=== PATIENT | male | born 2000 | race African-American/Black ===

== ENCOUNTER 2022-10-15 18:12 | Inpatient (IN) | payer OTHER ==
[2022-10-15] MEDS ORDERED: NA CHLORIDE 0.9% 1,000 ML ONE ×4 (18:19→21:06)
[2022-10-15] MEDS ORDERED: METHYLPREDNISOLONE 125 MG INJ ONE (18:19)
[2022-10-15] MEDS ORDERED: FAMOTIDINE 20 MG/2 ML VIAL IV ONE (18:20)
[2022-10-15] MEDS ORDERED: ONDANSETRON 4 MG/2 ML VIAL ONE (18:44)
[2022-10-15] MEDS ORDERED: DIPHENHYDRAMINE 50 MG/ML VIAL ONE (19:11)
[2022-10-15] MEDS ORDERED: CALCIUM GLUCONATE 1 GM IVPB 0 GM/0 ML BAG IV ONE (19:52)
[2022-10-15 20:24] LABS: Hematocrit 41.6 % (39.6-49.0); Lymphocytes % 35.9 % (15.3-44.8); MCV 76.1 fL (80-100); MPV 6.9 fL (7.6-11.3); RBC Red Blood Cell Count 5.47 M/uL (4.33-5.43)
[2022-10-15 20:41] LABS: Albumin 4.2 g/dL (3.4-5.0); Bilirubin Total 0.5 mg/dL (0.2-1.0); Potassium 3.2 mmol/L (3.5-5.1); Protein, Total 7.9 g/dL (6.4-8.2)
[2022-10-15] MEDS ORDERED: FUROSEMIDE 40 MG/4 ML VIAL ONE (21:06)
--- NOTE | 2022-10-15 21:25 | ER ---
Nurse's Notes [facility] Name: Aime Gruber Age: 22 yrs Sex: Male : 2000 Arrival Date: 10/15/2022 Time: 18:13 Bed 14 Private MD: Diagnosis: Hypermagnesemia Presentation: 10/15 18:20 Chief complaint: EMS states: allergic reaction to pork, pt c/o nausea and hoarseness , iw ingested a spoonful at 1700 , pt was administered benadryl 25 PO and zofran PO OLIVE GROWER, symptoms improved. Coronavirus screen: At this time, the client does not indicate any symptoms associated with coronavirus-19. Ebola Screen: Patient negative for fever greater than or equal to 101.5 degrees Fahrenheit, and additional compatible Ebola Virus Disease symptoms Patient denies exposure to infectious person. Patient denies travel to an Ebola-affected area in the 21 days before illness onset. No symptoms or risks identified at this time. Onset: The symptoms/episode began/occurred 1 hour(s) ago. Anaphylaxis evaluation, no signs or symptoms of anaphylaxis were noted. Initial Sepsis Screen: Does the patient meet any 2 criteria? No. Patient's initial sepsis screen is negative. Does the patient have a suspected source of infection? No. Patient's initial sepsis screen is negative. Risk Assessment: Do you want to hurt yourself or someone else? Patient reports no desire to harm self or others. Onset of symptoms was October 15, 2022. 18:20 Method Of Arrival: EMS: [facility] iw 18:20 Acuity: NICOLA 3 iw 19:35 Acuity: NICOLA 2 iw Historical: - Allergies: 18:22 No Known Allergies; iw - Home Meds: 18:22 None [Active]; iw - PMHx: 18:22 Asthma; iw - PSHx: 18:22 None; iw Screenin:27 [facility] ED Fall Risk Assessment (Adult) History of falling in the last 3 months, iw including since admission No falls in past 3 months (0 pts). Abuse screen: Denies threats or abuse. Denies injuries from another. Nutritional screening: No deficits noted. Tuberculosis screening: No symptoms or risk factors identified. Assessment: 18:27 General: Appears in no apparent distress. Behavior is calm, cooperative. Pain: Denies iw pain. Neuro: Level of Consciousness is awake, alert, obeys commands, Oriented to person, place, time, situation, Moves all extremities. Full function. Cardiovascular: Patient's skin is warm and dry. Respiratory: Airway is patent Respiratory effort is even, unlabored, Breath sounds are clear bilaterally. Derm: Skin is intact, is healthy with good turgor. Musculoskeletal: Range of motion: intact in all extremities. 19:20 Reassessment: pt c/o feeling hot, pt appears diaphoretic, cool wash cloths given, pt iw appears drowsy, awakens to verbal stimuli, YAMILETH Gonzalez notified and at bedside to assess pt. IVF discontinued. 19:50 Reassessment: 2nd IV inserted to left hand, labs drawn, pt still c/o feeling warm, no iw episodes of vomiting , EKG completed. 20:24 Reassessment: Pt states he feels much better. Eating and drinking in room. General: vc1 Appears in no apparent distress. Neuro: Level of Consciousness is awake, alert, obeys commands, Oriented to person, place, time, situation, Appropriate for age. 20:43 Reassessment: Patient is alert, oriented x 3, equal unlabored respirations, skin ke1 warm/dry/pink. Patient denies pain at this time. Patient states feeling better. Patient states symptoms have improved. Vital Signs: 18:20 BP 134 / 78; Pulse 89; Resp 16; Temp 98.0; Pulse Ox 100% on R/A; Weight 104.33 kg; iw Height 6 ft. 6 in. (198.12 cm); 19:33 BP 138 / 71; Pulse 91; Resp 14; Pulse Ox 98% ; iw 20:40 BP 132 / 81; Pulse 78; Resp 15; Pulse Ox 100% ; Pain 0/10; ke1 18:20 Body Mass Index 26.58 (104.33 kg, 198.12 cm) iw ED Course: 18:13 Patient arrived in ED. kb 18:13 Lisa Sanchez FNP-C [facility]. kb 18:13 Jean Blount MD is Attending Physician. kb 18:14 Zaria Gruber, JAVI is Primary Nurse. iw 18:22 Triage completed. iw 18:26 Maintain EMS IV. Dressing intact. Good blood return noted. Site clean \T\ dry. Gauge \T\ iw site: 22 right hand. 19:15 Patient has correct armband on for positive identification. Client placed on continuous iw cardiac and pulse oximetry monitoring. NIBP monitoring applied. 20:03 Inserted saline lock: 22 gauge in left hand, using aseptic technique. iw 21:17 Managed Care notified of hospitalized status, received inpatient authorization number ds4 ([id number]) from [facility]. 21:24 Teja Quinones MD is Hospitalizing Provider. kb 21:28 Lowe cath inserted, using sterile technique, 16 Fr., by me, balloon inflated, to iw gravity drainage, returned clear yellow urine. Patient tolerated well. 400 ml. 10/16 07:07 Jean Blount MD is Attending Physician. kdr Administered Medications: 10/15 18:20 Drug: NS 0.9% 1000 ml Route: IV; Rate: 1000 ml; Site: right hand; iw 18:20 Drug: Pepcid (famotidine) 20 mg Route: IVP; Site: right hand; iw 18:20 Drug: SOLU-Medrol (methylPrednisoLONE) 125 mg Route: IVP; Site: right hand; iw 18:40 Drug: Zofran (Ondansetron) 4 mg Route: IVP; Site: right hand; iw 19:14 Drug: Benadryl (diphenhydrAMINE) 12.5 mg Route: IVP; Site: right antecubital; vc1 19:56 Not Given (not recommended by poison controll): Calcium Gluconate 1 grams IVPB once iw over 3 mins; (mix in NS 100 mL) 20:23 Drug: NS 0.9% 1000 ml Route: IV; Rate: 1000 ml; Site: left hand; iw 21:08 CANCELLED (Other Intervention Used): NS 0.9% 1000 ml IV at 250 ml/hr continuous kb 21:30 Drug: Lasix (furosemide) 80 mg Route: IVP; Site: right hand; iw 21:30 Drug: NS 0.9% 1000 ml Route: IV; Rate: 250 ml/hr; Site: right hand; iw 10/16 01:46 Follow up: Rate change 250 ml/hr; 2nd bag ke1 10/15 21:46 Drug: Potassium Chloride 20 mEq Route: IV; Rate: calculated rate; Site: right hand; iw 22:55 Drug: Potassium Chloride 20 mEq Route: IV; Rate: calculated rate; Site: right hand; ke1 23:55 Drug: Potassium Chloride 20 mEq Route: IV; Rate: calculated rate; Site: right hand; ke1 10/16 05:52 Drug: NS 0.9% 1000 ml Route: IV; Rate: 150 ml/hr; Site: right hand; ke1 Medication: 10/15 18:27 VIS not applicable for this client. iw Intake: Output: 22:21 Urine: 1500ml (Lowe); Total: 1500ml. ke1 Outcome: 21:24 Decision to Hospitalize by Provider. kb 10/16 18:45 Patient left the ED. eb Signatures: Lisa Sanchez, GEOGRAPHY DEPARTMENT CHAIR-C GEOGRAPHY DEPARTMENT CHAIR-Ckb Chaparro Whitten MD MD kdr Williams, Irene, RN RN iw Rachid John ds4 Kathleen Gonzalez Vanessa, RN RN vc1 Magy Diamond RN RN ke1 Corrections: (The following items were deleted from the chart) 10/15 20:18 19:45 Reassessment: 2nd IV inserted to left hand, labs drawn, pt still c/o feeling iw warm, no episodes of vomiting , EKG completed iw
--- NOTE | 2022-10-15 21:25 | EDPHYS ---
Physician Documentation [facility] Name: Aime Gruber Age: 22 yrs Sex: Male : 2000 Arrival Date: 10/15/2022 Time: 18:13 Bed 14 Private MD: ED Physician Jean Blount HPI: 10/15 18:46 This 22 yrs old Black Male presents to ER via EMS with complaints of Allergic Reaction. kb 18:46 The patient presents with hoarse voice, shortness of breath, nausea. Onset: The kb symptoms/episode began/occurred just prior to arrival. Associated signs and symptoms: Pertinent positives: nausea, shortness of breath. Possible causes: pork. At home the patient or guardian has treated the symptoms with Benadryl. Severity of symptoms: At their worst the symptoms were moderate in the emergency department the symptoms have improved. The patient has not experienced similar symptoms in the past. The patient has not recently seen a physician. Historical: - Allergies: 18:22 No Known Allergies; iw - Home Meds: 18:22 None [Active]; iw - PMHx: 18:22 Asthma; iw - PSHx: 18:22 None; iw ROS: 18:47 Constitutional: Negative for fever, chills, and weight loss. kb 18:47 ENT: Positive for hoarseness. 18:47 Respiratory: Positive for shortness of breath. 18:47 Abdomen/GI: Positive for nausea. 18:47 All other systems are negative. Exam: 18:47 Constitutional: This is a well developed, well nourished patient who is awake, alert, kb and in no acute distress. Head/Face: Normocephalic, atraumatic. ENT: Moist Mucous membranes Cardiovascular: Regular rate and rhythm with a normal S1 and S2. No gallops, murmurs, or rubs. No pulse deficits. Respiratory: Respirations even and unlabored. No increased work of breathing. Talking in full sentences Abdomen/GI: Soft, non-tender. No distention Skin: Warm, dry with normal turgor. Normal color. MS/ Extremity: Pulses equal, no cyanosis. Neurovascular intact. Full, normal range of motion. Neuro: Awake and alert, GCS 15, oriented to person, place, time, and situation. Moves all extremities. Normal gait. 19:44 ECG was reviewed by the Attending Physician. munir Vital Signs: 18:20 BP 134 / 78; Pulse 89; Resp 16; Temp 98.0; Pulse Ox 100% on R/A; Weight 104.33 kg; iw Height 6 ft. 6 in. (198.12 cm); 19:33 BP 138 / 71; Pulse 91; Resp 14; Pulse Ox 98% ; iw 20:40 BP 132 / 81; Pulse 78; Resp 15; Pulse Ox 100% ; Pain 0/10; ke1 18:20 Body Mass Index 26.58 (104.33 kg, 198.12 cm) iw MDM: 18:13 Patient medically screened. kb 18:44 Differential diagnosis: anaphylaxis, angioedema, bronchospasm, urticaria. Data kb reviewed: vital signs, nurses notes. Historians other than the Patient: EMS: [facility]. ED course: Patient is a 22-year-old male with a history of asthma and known allergy to pork who presents for hoarseness, shortness of breath and nausea that started after eating 1 bite of pork containing food. Lungs clear bilaterally, respirations even and unlabored, no rash or hives no swelling noted to posterior pharynx or tongue.. 19:29 ED course: Upon reexamination patient is lethargic, diaphoretic and complaining of kb being hot. IV fluids that were being infused contain 40gm of magnesium sulfate. Order was for 1L of NS. Fluids discontinued immediately. Patient received approximately 600 mL of the liter, approximately 24 grams of magnesium. EKG ordered as well as serum labs. Nurse calling poison control for recommendation if any.. 19:50 Management of patient was discussed with the following: I discussed case with Dr. munir Haque, sport intern at poison control, who recommended IV fluids and close monitoring. Discussed use of calcium gluconate, but he does not recommend it at this time.. 20:49 Management of patient was discussed with the following: Link And Link Knitting Machine Operator: Dr. Warren, munir nephrology. Recommends stat Lowe placement, normal saline 250 ml/hr for 2 L then decrease to 150ml/hr continuously, Lasix 80 mg IV every 4 hours until magnesium level less than 4, 60 mEq of potassium IV now, magnesium and ionized calcium levels every 4 hours with renal panel every 8 hours, if ionized calcium less than 1.1 give 2 g calcium gluconate IV.. 23:06 Consideration of Admission/Observation Patient was admitted/placed on observation. kb Management of patient was discussed with the following: Hospitalist: YAMILETH Gamez accepts patient for admission under Dr. Quinones.. Counseling: I had a detailed discussion with the patient and/or guardian regarding: the historical points, exam findings, and any diagnostic results supporting the discharge/admit diagnosis, lab results, the need for further work-up and treatment in the hospital. 23:08 ED course: After 2 L bolus complete patient sitting up in bed, alert and oriented x4, kb weakness resolved. Patient ate several sandwiches and is tolerating p.o. Patient has no complaints at this time.. 10/15 19:26 Order name: CBC with Diff kb 10/15 19:26 Order name: CMP kb 10/15 19:34 Order name: Magnesium ds4 10/15 20:13 Order name: Glucose, Ancillary Testing; Complete Time: 20:23 EDMS 10/15 20:35 Order name: CBC with Automated Diff; Complete Time: 20:36 EDMS 10/15 20:42 Order name: Comprehensive Metabolic Panel; Complete Time: 21:36 EDMS 10/15 20:42 Order name: Magnesium; Complete Time: 21:36 EDMS 10/15 22:11 Order name: SARS RAPID ke1 10/15 22:37 Order name: SARS-COV-2 Antigen Rapid; Complete Time: 22:45 EDMS 10/16 01:50 Order name: Renal Panel; Complete Time: 09:19 EDMS 10/16 01:50 Order name: Magnesium; Complete Time: 09:19 EDMS 10/16 05:17 Order name: CBC with Automated Diff; Complete Time: 09:19 EDMS 10/16 05:29 Order name: Magnesium; Complete Time: 09:19 EDMS 10/16 05:31 Order name: Phosphorus; Complete Time: 09:19 EDMS 10/16 09:32 Order name: Renal Panel; Complete Time: 12:57 EDMS 10/16 09:32 Order name: Magnesium; Complete Time: 12:57 EDMS 10/16 14:28 Order name: NT PRO-BNP; Complete Time: 14:29 EDMS 10/16 14:28 Order name: Magnesium; Complete Time: 14:29 EDMS 10/16 14:46 Order name: Renal Panel; Complete Time: 15:06 EDMS 10/16 17:39 Order name: Renal Panel; Complete Time: 18:17 EDMS 10/15 19:26 Order name: EKG; Complete Time: 19:27 kb 10/15 19:26 Order name: EKG - Nurse/Tech; Complete Time: 19:44 kb 10/15 19:26 Order name: IV Start; Complete Time: 20:07 kb 10/15 19:32 Order name: Blood Glucose Level; Complete Time: 20:07 kb 10/15 20:56 Order name: Lowe; Complete Time: 22:07 kb EC:44 Rate is 69 beats/min. Rhythm is regular. QRS [place] is Normal. DE interval is prolonged kb at 208 msec. QRS interval is normal at 110 msec. QT interval is prolonged at 505 msec. Administered Medications: 18:20 Drug: NS 0.9% 1000 ml Route: IV; Rate: 1000 ml; Site: right hand; iw 18:20 Drug: Pepcid (famotidine) 20 mg Route: IVP; Site: right hand; iw 18:20 Drug: SOLU-Medrol (methylPrednisoLONE) 125 mg Route: IVP; Site: right hand; iw 18:40 Drug: Zofran (Ondansetron) 4 mg Route: IVP; Site: right hand; iw 19:14 Drug: Benadryl (diphenhydrAMINE) 12.5 mg Route: IVP; Site: right antecubital; vc1 19:56 Not Given (not recommended by poison controll): Calcium Gluconate 1 grams IVPB once iw over 3 mins; (mix in NS 100 mL) 20:23 Drug: NS 0.9% 1000 ml Route: IV; Rate: 1000 ml; Site: left hand; iw 21:08 CANCELLED (Other Intervention Used): NS 0.9% 1000 ml IV at 250 ml/hr continuous kb 21:30 Drug: Lasix (furosemide) 80 mg Route: IVP; Site: right hand; iw 21:30 Drug: NS 0.9% 1000 ml Route: IV; Rate: 250 ml/hr; Site: right hand; iw 10/16 01:46 Follow up: Rate change 250 ml/hr; 2nd bag ke1 10/15 21:46 Drug: Potassium Chloride 20 mEq Route: IV; Rate: calculated rate; Site: right hand; iw 22:55 Drug: Potassium Chloride 20 mEq Route: IV; Rate: calculated rate; Site: right hand; ke1 23:55 Drug: Potassium Chloride 20 mEq Route: IV; Rate: calculated rate; Site: right hand; 1 10/16 05:52 Drug: NS 0.9% 1000 ml Route: IV; Rate: 150 ml/hr; Site: right hand; [facility] Disposition: 20:22 Co-signature as Attending Physician, Jean Blount MD I reviewed the patient's care rt provided by the Advanced Practice Provider and agree with the diagnosis and treatment plan. Disposition Summary: 10/15/22 21:24 Hospitalization Ordered Hospitalization Status: Inpatient Admission kb Provider: Teja Quinones Condition: Critical kb Problem: new kb Symptoms: are unchanged kb Bed/Room Type: Standard Location: [facility] ER HOLD(10/15/22 21:59) Room Assignment: ERHOLD-(10/15/22 21:59) cg Diagnosis - Hypermagnesemia kb Forms: - Medication Reconciliation Form kb - SBAR form kb Signatures: Dispatcher [employer] EDLisa Jha, POULTRY FARM LABORER-C POULTRY FARM LABORER-Nicob Zaria Gruber RN JAVI Franco Duncan POULTRY FARM LABORER-C POULTRY FARM LABORER-Cla1 Sandra Garcia RN RN cg Calcote, Vanessa, RN RN vc1 Magy Diamond RN RN ke1 Rosa Telles, POULTRY FARM LABORER POULTRY FARM LABORER [id number] Jean Blount MD MD rt Corrections: (The following items were deleted from the chart) 10/15 21:08 20:56 NS 0.9% 1000 ml IV at 250 ml/hr continuous ordered. kb kb 21:08 21:07 NS 0.9% 1000 ml IV at 250 ml/hr continuous ordered. kb kb 21:38 21:24 Telemetry/MedSurg (Inpatient) kb cg 21:38 21:24 kb cg 21:55 21:38 [facility] ER HOLD cg kb 21:55 21:38 ERHOLD- cg kb 21:59 21:55 Intensive Care Unit kb cg 21:59 21:55 kb cg 23:03 19:29 ED course: Upon reexamination patient is lethargic, diaphoretic and complaining kb of being hot. IV fluids that were given by RN contained 40 g of magnesium sulfate. Patient received approximately 600 mL of the liter. EKG ordered as well as serum labs. Nurse calling poison control for recommendation if any.. munir 10/16 18:17 10/15 19:29 ED course: Upon reexamination patient is lethargic, diaphoretic and kb complaining of being hot. IV fluids that were given by RN contained 40 g of magnesium sulfate. Patient received approximately 600 mL of the liter, approximately 24 g. EKG ordered as well as serum labs. Nurse calling poison control for recommendation if any.. munir
[2022-10-15 21:36] LABS: Magnesium 9.3 mg/dL (1.6-2.4)
[2022-10-15] MEDS ORDERED: KCL 20 MEQ/100 mL IVPB 300 ML IV ONE (21:40)
[2022-10-15] MEDS: NA CHLORIDE 0.9% 1,000 ML IV SCH (22:00)
--- NOTE | 2022-10-15 22:10 | P.HP ---
Certification for Inpatient Patient admitted to: Inpatient With expected LOS: >2 Midnights Patient will require the following post-hospital care: None Practitioner: I am a practitioner with admitting privileges, knowledge of patient current condition, hospital course, and medical plan of care. Services: Services provided to patient in accordance with Admission requirements found in Title 42 Section 412.3 of the Code of Federal Regulations Patient History Date of Service: 10/15/22 History of Present Illness: 22-year-old male with history of asthma presented to ED from correctional facility escorted by correctional officers with chief complaint of allergic reaction. Patient reports that he is allergic to pork and had a spoonful of pork at the correctional facility developing hoarseness and nausea. Initially ED provider ordered IV Benadryl, IV Solu-Medrol, IV Pepcid, IV Zofran and 1 L normal saline bolus. Upon reassessment patient was lethargic, diaphoretic and having nausea/vomiting. His blood pressure was still normal, upon further assessment it was noted that the patient was receiving normal saline with 40 g of magnesium at bolus rate which he had completed approximately 600 mL of. The medication was immediately stopped and ED staff reached out to poison control as well as nephrology. Patient symptoms improved quickly in regards to his nausea, lethargy and diaphoresis. Magnesium level was obtained which was markedly elevated at 9.3. ED provider received recommendations from nephrology which have been initiated including aggressive IV fluids, high-dose Lasix every 4 hours along with measurement of magnesium level every 4 hours until magnesium is less than 4. Lowe catheter was inserted as well. Vital signs are stable at this time will admit to ICU for further evaluation and management. Allergies No Known Allergies Allergy (Unverified 10/15/22 21:50) - Past Medical/Surgical History -: asthma -: none Psychosocial/ Personal History: Pt instituted in correctional facility. - Family History Family History: Reviewed- Non-Contributory - Social History Smoking Status: Current some day smoker Alcohol use: No CD- Drugs: No Caffeine use: No Place of Residence: Home Review of Systems 10-point ROS is otherwise unremarkable General: Malaise Physical Examination - Physical Exam General: Alert, In no apparent distress, Oriented x3 HEENT: Atraumatic, PERRLA, Mucous membr. moist/pink, EOMI, Sclerae nonicteric Neck: Supple, 2+ carotid pulse no bruit, No LAD, Without JVD or thyroid abnormality Respiratory: Clear to auscultation bilaterally, Normal air movement Cardiovascular: Regular rate/rhythm, Normal S1 S2 Capillary refill: <2 Seconds Gastrointestinal: Normal bowel sounds, No tenderness Musculoskeletal: No tenderness Integumentary: No rashes Neurological: Normal speech, Normal strength at 5/5 x4 extr, Normal tone, Normal affect - Studies Laboratory Data (last 24 hrs) 10/15/22 19:56: Sodium 138, Potassium 3.2 L, BUN 13, Creatinine 1.04, Glucose 107 H, Magnesium 9.3 H*, Total Bilirubin 0.5, AST 19, ALT 44, Alkaline Phosphatase 72 10/15/22 19:56: WBC 8.40, Hgb 13.9, Hct 41.6, Plt Count 311 10/15/22 19:34: Magnesium Cancelled Assessment and Plan - Plan Assessment: Hypermagnesemia Allergic reaction Asthma Plan: Hypermagnesemia Case discussed at length with nephrology, poison control recommendations initiated including measurement of magnesium every 4 hours until less than 4, aggressive IV fluids with normal saline at 250 mils per hour for 2 L followed by NS at 150 mils per hour, measurement of renal panel every 8 hours, measurement of ionized calcium every 4 hours with repletion as indicated. Nephrology consult in place, admit with ICU level of care, monitoring telemetry. Vital signs are stable at this time, in sinus rhythm without any complaints currently. Allergic reaction Symptoms are resolved, monitor closely. Asthma No active exacerbation, uses albuterol inhaler as needed. DVT PPX:Lovenox Code status: Full Discharge Plan: Home Plan to discharge in: 48 Hours - Advance Directives Does patient have a Living Will: No Does patient have a Durable POA for Healthcare: No - Code Status/Comfort Care Code Status Assessed: Yes (Full code) Time Spent Managing Pts Care (In Minutes): 70
[2022-10-15 22:37] LABS: SARS-CoV-2 Antigen Rapid Res Negative (Negative)
[2022-10-15 22:43] VITALS: BMI 12.0
[2022-10-15 23:37] VITALS: TEMP 98.1
[2022-10-16 01:48] LABS: Albumin 4.2 g/dL (3.4-5.0); Phosphorus 1.5 mg/dL (2.5-4.9); Potassium 4.5 mmol/L (3.5-5.1)
[2022-10-16 01:49] LABS: Magnesium 5.1 mg/dL (1.6-2.4)
[2022-10-16] MEDS ORDERED: CALCIUM GLUC 10% INJ 4.65 MEQ in NA CHLORIDE 0.9% 100 ML IV ONE (01:57)
[2022-10-16] MEDS: NA CHLORIDE 0.9% 1,000 ML IV SCH (02:00)
[2022-10-16] MEDS ORDERED: CALCIUM GLUCONATE 1 GM IVPB 1 GM/50 ML BAG IV ONE (02:29)
[2022-10-16] MEDS ORDERED: FUROSEMIDE 40 MG/4 ML VIAL ONE (02:30)
[2022-10-16] MEDS: FUROSEMIDE 40 MG/4 ML VIAL IV SCH ×2 (02:33→05:00)
[2022-10-16 05:16] LABS: Absolute Lymphocytes (CBC) 0.9 K/uL (0.7-4.9); Lymphocytes % 7.3 % (15.3-44.8); MCV 77.1 fL (80-100); MPV 6.7 fL (7.6-11.3); RBC Red Blood Cell Count 6.09 M/uL (4.33-5.43)
--- NOTE | 2022-10-16 06:00 | P.CNS ---
Date of Consult: 10/16/22 Reason for Consult: Hypermagnesemia Requesting Physician: Teja Quinones History of Present Illness: 22 yo incarcerated man w/ PMHx of asthma who p/w allergic reaction from eating pork w/ hoarseness and nausea. He received IV Benadryl, IV Solu-Medrol, IV Pepc id, IV Zofran and IV fluid. The IV fluid given was inadvertently w/ 40g magnesium included. IVF stopped. Serum mg elevated at 9.3. Lowe inserted & he received NS IV + lasix IV several doses w/ serum Mg decreased to < 4.0. Serum calcium & phos were low, improved w/ repletion. Allergies No Known Allergies Allergy (Unverified 10/15/22 21:50) - Past Medical/Surgical History -: asthma -: none Psychosocial/ Personal History: Pt instituted in correctional facility. - Social History Alcohol use: No CD- Drugs: No Caffeine use: No Place of Residence: Home Review of Systems General: Unremarkable Eyes: Unremarkable ENT: Unremarkable Respiratory: Unremarkable Cardiovascular: Unremarkable Gastrointestinal: Unremarkable Genitourinary: Unremarkable Musculoskeletal: Unremarkable Integumentary: Unremarkable Neurological: Unremarkable Lymphatics: Unremarkable Physical Examination Temp Pulse Resp BP Pulse Ox 98.1 F 72 17 123/73 100 10/16/22 02:36 10/16/22 02:36 10/16/22 02:36 10/16/22 02:36 10/16/22 02:36 General: In no apparent distress HEENT: Atraumatic, Normocephalic Neck: Supple, JVD not distended Respiratory: Clear to auscultation bilaterally Cardiovascular: No rubs, No murmurs Gastrointestinal: Soft and benign, No guarding Musculoskeletal: No clubbing Integumentary: No warmth Neurological: Normal speech, Normal tone Urinary: Other (No bladder distention) External genitalia: Deferred Rectal: Deferred Laboratory Data (last 24 hrs) 10/15/22 19:56: Sodium 138, Potassium 3.2 L, BUN 13, Creatinine 1.04, Glucose 107 H, Magnesium 9.3 H*, Total Bilirubin 0.5, AST 19, ALT 44, Alkaline Phosphatase 72 10/15/22 19:56: WBC 8.40, Hgb 13.9, Hct 41.6, Plt Count 311 10/15/22 19:34: Magnesium Cancelled Conclusions/Impression: # Hypermagnesemia 2/2 IV Mg received Lowe inserted, december dc now NS gtt 250 cc/hr x 8 hrs, then 125 cc/hr received, december dc now Furosemide 80 mg IV q4h received, until serum Mg < 4.0, december dc now Check serum Mg & iCa q4h Check renal panel q8h Admited to ICU Neuro & cardiac monitoring # HypoCa Improved, corrected Ca low normal, monitor # HypoPO4 Improved, phos repletion prn # Pork allergy Resolved Received IV Benadryl, IV Solu-Medrol, IV Pepcid, IV Zofran # Dispo Ok to dc today
[2022-10-16 08:53] VITALS: O2SAT 100
[2022-10-16 09:32] LABS: Albumin 3.9 g/dL (3.4-5.0); Magnesium 3.3 mg/dL (1.6-2.4); Phosphorus 1.8 mg/dL (2.5-4.9); Potassium 4.1 mmol/L (3.5-5.1)
[2022-10-16 14:28] LABS: Magnesium 2.8 mg/dL (1.6-2.4)
[2022-10-16 14:46] LABS: Albumin 3.7 g/dL (3.4-5.0); Phosphorus 2.9 mg/dL (2.5-4.9); Potassium 4.1 mmol/L (3.5-5.1)
--- NOTE | 2022-10-16 15:28 | P.DS ---
Admission Date: 10/15/22 Discharge Date: 10/16/22 Disposition: ROUTINE DISCHARGE Discharge Condition: GOOD Reason for Admission: Hypomagnesemia Consultations: Nephrology - Dr. Warren Brief History of Present Illness: 22yo M, PMH: asthma Presented to ED from correctional facility escorted by correctional officers with chief complaint of allergic reaction. Patient reports that he is allergic to pork and had a spoonful of pork at the correctional facility developing hoarseness and nausea. Initially ED provider ordered IV Benadryl, IV Solu- Medrol, IV Pepcid, IV Zofran and 1 L normal saline bolus. Upon reassessment patient was lethargic, diaphoretic and having nausea/vomiting. His blood pressure was still normal, upon further assessment it was noted that the patient was receiving normal saline with 40 g of magnesium at bolus rate which he had completed approximately 600 mL of. The medication was immediately stopped and ED staff reached out to poison control as well as nephrology. Patient symptoms improved quickly in regards to his nausea, lethargy and diaphoresis. Magnesium level was obtained which was markedly elevated at 9.3. ED provider received recommendations from nephrology which have been initiated including aggressive IV fluids, high-dose Lasix every 4 hours along with measurement of magnesium level every 4 hours until magnesium is less than 4. Lowe catheter was inserted as well. Vital signs are stable at time of admission to ICU for further evaluation and management. Hospital Course: Problem List: Hypermagnesemia, iatrogenic Allergic reaction Asthma Presented to ED due to allergic reaction. Symptoms improved with anti- histaminesf and steroids. He was ordered to receive a 1L normal saline bolus. A medication error occurred which lead to the patient receiving IV magnesium. He developed nausea, diaphoresis, and some lethargy. Once this was identified, magnesium was immediately discontinued and he received aggressive IV fluids, high-dose lasix, and frequent monitoring. Nephrology was consulted. Patient's symptoms and hypermagnesemia resolved. Lowe catheter was removed (inserted for strict I/Os) and he was deemed stable for discharge. Vital Signs/Physical Exam: Temp Pulse Resp BP Pulse Ox 98.1 F 89 19 117/61 96 10/16/22 02:36 10/16/22 11:00 10/16/22 11:00 10/16/22 11:00 10/16/22 11:00 General: Alert, In no apparent distress, Oriented x3 HEENT: EOMI, Sclerae nonicteric Neck: Supple, No LAD Respiratory: Clear to auscultation bilaterally, Normal air movement Cardiovascular: No edema, Regular rate/rhythm Gastrointestinal: Soft and benign, Non-distended, No tenderness Musculoskeletal: No contractures, No tenderness Integumentary: No rashes, No significant lesion Neurological: Normal speech, Normal strength at 5/5 x4 extr, Normal affect Laboratory Data at Discharge: WBC 12.00 K/uL (4.3-10.9) H 10/16/22 05:07 Hgb 15.3 g/dL (13.6-17.9) D 10/16/22 05:07 Hct 47.0 % (39.6-49.0) 10/16/22 05:07 Plt Count 340 K/uL (152-406) 10/16/22 05:07 Sodium 139 mmol/L (136-145) 10/16/22 13:44 Potassium 4.1 mmol/L (3.5-5.1) 10/16/22 13:44 BUN 17 mg/dL (7-18) 10/16/22 13:44 Creatinine 1.20 mg/dL (0.70-1.30) 10/16/22 13:44 Glucose 140 mg/dL (74-106) H 10/16/22 13:44 Phosphorus 2.9 mg/dL (2.5-4.9) 10/16/22 13:44 Magnesium 2.8 mg/dL (1.6-2.4) H 10/16/22 13:44 Total Bilirubin 0.5 mg/dL (0.2-1.0) 10/15/22 19:56 AST 19 U/L (15-37) 10/15/22 19:56 ALT 44 U/L (16-61) 10/15/22 19:56 Alkaline Phosphatase 72 U/L (45-117) 10/15/22 19:56 Physician Discharge Instructions: Presented to ED due to allergic reaction. Symptoms improved with anti- histaminesf and steroids. He was ordered to receive a 1L normal saline bolus. A medication error occurred which lead to the patient receiving IV magnesium. He developed nausea, diaphoresis, and some lethargy. Once this was identified, magnesium was immediately discontinued and he received aggressive IV fluids, high-dose lasix, and frequent monitoring. Nephrology was consulted. Patient's symptoms and hypermagnesemia resolved. Lowe catheter was removed (inserted for strict I/Os) and he was deemed stable for discharge. Diet: Regular Time spent managing pt's care (in minutes): 45
[2022-10-16 16:19] VITALS: BP 122/60
[2022-10-16 17:38] LABS: Albumin 3.5 g/dL (3.4-5.0); Potassium 3.9 mmol/L (3.5-5.1)
--- NOTE | 2022-10-17 12:40 | EKG ---
Test Date: 2022-10-15 Test Time: 19:42:21 [place] [employer]lower: DEBRA MEASUREMENT RESULTS: Intervals: Rate: 69 MD: 208 QRSD: 110 QT: 472 QTc: 505 [place]: P: 84 MD: 208 QRS: 24 T: 51 INTERPRETIVE STATEMENTS: Normal sinus rhythm Nonspecific T wave abnormality Prolonged QT Abnormal ECG No previous ECG available for comparison Electronically Signed On 10-17-22 12:36:15 SONOGRAPHER by Christiano Webber
== END 2022-10-16 17:27 | disposition home or self-care (01) | DRG 641 ==
LOC: ER 18:12 → ERHOLD 21:22
PROVIDERS: ADMIT Hospitalist; ATTEND Hospitalist
DX: E83.41 Hypermagnesemia (principal); J45.909 Unspecified asthma, uncomplicated; E83.51 Hypocalcemia; E83.39 Other disorders of phosphorus metabolism; F17.200 Nicotine dependence, unspecified, uncomplicated; T78.1XXA Other adverse food reactions, not elsewhere classified, initial encounter; Z91.014 Allergy to mammalian meats; Z20.822 Contact with and (suspected) exposure to COVID-19
CPT/HCPCS: 36415; 51702; 80053; 80069; 82330; 82947; 83735; 83880; 84100; 85025; 87811; 93005; 99284; J0610; J1200; J1940; J2405; J2930; J3480; J7030